=== PATIENT | female | born 1950 | race Caucasian/White ===

== ENCOUNTER 2024-09-23 10:21 | Inpatient (IN) | payer MEDICARE ==
[~2024-09-23] VITALS: Ht 160 cm; Wt 69.0 kg
--- NOTE | 2024-09-23 10:25 | ELECTROCARDIOGRAPH REPORT ---
[facility] Test Date: 2024-09-23 Test Time: 10:23:42 Pat Name: JENNIE RIVERA Department: EMERGENCY ROOM Room: [place] [address] Gender: F Qual Field Manager: PM : 1950 Requested By: AJ MENON Order Number: [id number] Reading MD: Dr. Orlin Blackwood Measurements Intervals [place] Rate: 62 P: 22 IA: 152 QRS: 44 QRSD: 94 T: 40 QT: 438 QTc: 445 Interpretive Statements Sinus rhythm Lateral infarct, recent Electronically Signed On 09-23-2024 19:42:[address] Orlin Blackwood Please click the below link to view image of tracing.
[2024-09-23 11:06] LABS: MEAN PLATELET VOLUME 8.5 FL (7.4-10.4); RED CELL DISTRIBUTION WIDTH 13.9 % (11.5-14.5)
--- NOTE | 2024-09-23 11:24 | Physician Documentation ---
History of Present Illness ~ Chief Complaint: Chest Pain Stated Complaint: CHEST PRESSURE Time Seen by MD: 11:04 Primary Medical Doctor: JOSÉ LUIS TAPIA; PILOT PLANT RESEARCH TECHNICIAN- CAMRON Mode of Arrival: EMS, Stretcher HPI 74-year-old female presenting with some pressure-like chest discomfort that started earlier today this morning when she was cooking breakfast. She describes it as feeling very bloated but up in her chest. She states that sometimes she will get this and will burp and it will go away. However this time after burping several times it did not and she became more concerned. She denies any pain but states that it is more like a pressure in the left side. Denies any nausea, vomiting, cough, shortness of breath, fever, chills or any other associated symptoms. Medication Reconciliation Allergies: Coded Allergies: No Known Allergies (Unverified , 09/23/24) Review of Systems All Other Systems at this time: Reviewed and Negative Physical Exam Vital Signs: Temperature: 98.2, Source: Oral, Heart Rate: 74, Respiratory Rate: 18, BP: 128/56, Pulse Oximetry: 95, Weight: 69.000 Oxygen Flow Rate: 0 Physical Exam I have reviewed the triage vitals. CONST: Well developed and well nourished. In no acute distress HENT: Head Atraumatic EYES: Pupils are equal, round and reactive to light. Normal conjunctiva NECK: Normal range of motion. Supple. CARDIO: Normal rate and regular rhythm. No murmurs, rubs, or gallops. S1, S2. PULM/CHEST: No respiratory distress. Lungs clear to auscultation. No wheeze ABD: Soft and nontender. Nondistended. Bowel sounds normal. No guarding. : Exam deferred MSK: No edema. No deformity. NEURO: Alert and oriented to person, place and time. Moving all extremities SKIN: Warm and dry. PSYCH: Normal mood and affect. Good eye contact. Progress Results/Orders Results/Orders Orders - AJ MENON MD Chest,Single View (09/23/24 10:22) Monitor (09/23/24 10:22) Saline Lock (09/23/24 10:22) Oxygen (09/23/24 10:22) Electrocardiogram (09/23/24 10:22) Electrocardiogram (09/23/24 ) Cbc/Diff (09/25/24 03:00) Cbc/Diff (09/26/24 03:00) Cbc/Diff (09/27/24 03:00) Cbc/Diff (09/28/24 03:00) Page Hospitalist (09/23/24 12:02) Fill Out Med Reconciliation (09/23/24 12:02) Completed Orders - AJ MENON MD Chest,Single View (09/23/24 10:22) Cbc/Diff (09/23/24 10:22) BMP (09/23/24 10:22) PBNP (09/23/24 10:22) Electrocardiogram (09/23/24 10:22) Hs Troponin I W Calculations (09/23/24 10:22) Hs Troponin I W Calculations (09/23/24 12:22) Hs Troponin I W Calculations (09/23/24 13:22) Electrocardiogram (09/23/24 ) Morphine 2mg/Ml Inj. (Morphine Inj.) (09/23/24 12:05) Ondansetron Inj. (Zofran 4mg/2ml Vial) (09/23/24 12:05) Pt Inr (09/23/24 12:01) PTT (09/23/24 12:01) Heparin 10,000 Unit/Ml 1ml (Heparin 10,0 (09/23/24 12:05) Heparin 25,000 Unit/250ml Bag (Heparin 2 (09/23/24 12:05) Heparin 10,000 Unit/Ml 1ml (Heparin 10,0 (09/23/24 12:05) Cbc/Diff (09/24/24 03:00) Heparin 10,000 Unit/Ml 1ml (Heparin 10,0 (09/23/24 12:05) Message To Nursing (09/23/24 12:15) Cardiac Ptt (09/23/24 18:25) MG (09/23/24 10:26) Vital Signs 09/23/24 09/23/24 09/23/24 09/23/24 10:23 10:32 12:20 12:22 Temp 98.2 98.2 Pulse 74 67 Resp 18 18 18 16 B/P (MAP) 128/56 145/60 (88) Pulse Ox 95 97 O2 Flow Rate 0 0 Laboratory Tests Test 09/23/24 10:26 09/23/24 12:05 White Blood Count 10.5 Red Blood Count 4.67 Hemoglobin 13.3 Hematocrit 39.9 Mean Corpuscular Volume 85.4 Mean Corpuscular Hemoglobin 28.5 Mean Corpuscular Hemoglobin Concent 33.4 Red Cell Distribution Width 13.9 Platelet Count 315 Mean Platelet Volume 8.5 Neutrophils (%) (Auto) 74.9 Lymphocytes (%) (Auto) 15.2 L Monocytes (%) (Auto) 4.7 Eosinophils (%) (Auto) 4.4 Basophils (%) (Auto) 0.8 Neutrophils # (Auto) 7.9 H Lymphocytes # (Auto) 1.6 Monocytes # (Auto) 0.5 Eosinophils # (Auto) 0.5 Basophils # (Auto) 0.1 CBC Comment Sodium Level 128 L Potassium Level 3.6 Chloride Level 107 Carbon Dioxide Level 26.8 Anion Gap -6 L Blood Urea Nitrogen 18 Creatinine 0.45 Estimated GFR/1.73 m2 > 90 BUN/Creatinine Ratio 40.0 H Glucose Level 129 H Calcium Level 8.4 L Magnesium Level 1.8 Troponin I High Sensitivity 398 *H 1696 *H Pro-B-Type Natriuretic Peptide 189 H Albumin 3.3 L Chemistry Comments Prothrombin Time 10.3 INR International Normalized Ratio 1.0 Activated Partial Thromboplast Time 26 Coagulation Comments Troponin I High Sens Percent Delta 326 Troponin I Hi Sens Absolute Change 1298 EKG/XRAY/CT/US/VASC/MRI EKG : Additional Comment EKG as interpreted by ED MD indicating normal sinus rhythm with a rate of 62 beats per minute, no ischemia, normal axis Chest X-Ray : Additional Comments CHEST RADIOGRAPH Indication: CP Technique: DI CHEST,SINGLE VIEW COMPARISON: None FINDINGS: The cardiac silhouette is enlarged. The lungs demonstrate bilateral patchy airspace opacities. Right hilar prominence. Aortic atherosclerotic disease. The pulmonary vasculature is prominent. There is no pleural effusion. There is no pneumothorax. IMPRESSION: Cardiomegaly with pulmonary vascular congestion and bilateral patchy airspace opacities. Right hilar prominence. Recommend CT chest with contrast to evaluate for mass/ lymphadenopathy versus vasculature congestion Medical Decision Making Additional Information This is a 74-year-old female presenting with left-sided chest pressure secondary to a NSTEMI. Patient had an elevated troponin of 389 initially. Repeat troponin was further elevated above 1600. Patient had already been given aspirin and nitroglycerin en route to hospital by EMS. We did start her on a heparin drip and also treated her with Plavix. Patient was also given IV morphine 2 mg for pain control. I did consult Cardiology Dr. Rodriguez who will consult and see the patient. Patient admitted to the inpatient hospitalist service. Departure Disposition: ADMITTED INPATIENT Admitted to Inpatient Unit: to hospitalist, to sessions clerk Admission Level of Care: PCU with Tele Impression: Primary Impression: NSTEMI (non-ST elevated myocardial infarction) Condition: Guarded Referrals: NO PRIMARY CARE PROVIDER (PCP) Critical Care Note Total Time (mins): 96 Critical Care Note The very real possibility of a deterioration of this patient's condition required the highest level of my preparedness for sudden, emergent intervention. I provided critical care services, which included medication orders, frequent reevaluations of the patient's condition and response to treatment, ordering and reviewing test results, and discussing the case with various consultants. Excludes time spent performing separately billable procedures. The critical care time associated with the care of the patient was. Signature Scribe Signature: 1 Attestation: 1 AJ MENON MD Sep 23, 2024 11:24
--- NOTE | 2024-09-23 11:29 | RADIOLOGY REPORT ---
CHEST RADIOGRAPH Indication: CP Technique: DI CHEST,SINGLE VIEW COMPARISON: None FINDINGS: The cardiac silhouette is enlarged. The lungs demonstrate bilateral patchy airspace opacities. Right hilar prominence. Aortic atherosclerotic disease. The pulmonary vasculature is prominent. There is n o pleural effusion. There is no pneumothorax. IMPRESSION: Cardiomegaly with pulmonary vascular congestion and bilateral patchy airspace opacities. Right hilar prominence. Recommend CT chest with contrast to evaluate for mass/ lymphadenopathy versu s vasculature congestion
[2024-09-23 11:31] LABS: CREATININE 0.45 MG/DL (0.40-0.90); PRO BRAIN NATRIURETIC PEPTIDE 189 PG/ML (0-125); TOTAL CARBON DIOXIDE 26.8 MMOL/L (24-32); eCRCL 93 ML/MIN; eGFR > 90 ML/MIN
--- NOTE | 2024-09-23 11:46 | ELECTROCARDIOGRAPH REPORT ---
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 Orlin Blackwood Measurements Intervals [place] Rate: 57 P: 29 MD: 155 QRS: 58 QRSD: 96 T: 50 QT: 443 QTc: 432 Interpretive Statements Sinus bradycardia Low voltage, precordial leads Baseline wander in lead(s) V3 Electronically Signed On 09-23-2024 19:42:[address] Orlin Blackwood Please click the below link to view image of tracing.
[2024-09-23] MEDS ORDERED: heparin 10,000 units/1 ML INJ IV ONE ×2 (12:05)
[2024-09-23] MEDS ORDERED: heparin 10,000 units/1 ML INJ IV PRN (12:05)
[2024-09-23] MEDS: ondansetron/PF 4mg/2ml inj IV ONE (12:20)
[2024-09-23] MEDS: heparin 10,000 units/1 ML INJ IV ONE (12:22)
[2024-09-23] MEDS: heparin 25,000 UNIT/250ml bag 250 ML IV PRN (12:25)
[2024-09-23] MEDS: MESSAGE TO NURSING IV ONE (12:25)
[2024-09-23 12:36] LABS: APTT 26 SECONDS (22-32); INR 1.0 INR
[2024-09-23] MEDS: normal saline 1000ml 1,000 ML IV SCH (14:26)
[2024-09-23] MEDS ORDERED: midazolam 1 mg/ML 2ml injection ONE (14:32)
[2024-09-23] MEDS ORDERED: LIDOcaine 1% (10mg/ml) 2ml vial ONE (14:32)
[2024-09-23] MEDS ORDERED: verapamil 2.5 mg/ml inj IV ONE (14:32)
[2024-09-23] MEDS ORDERED: iohexol 350 MG/ML 50ML vial IV ONE (14:33)
[2024-09-23] MEDS ORDERED: heparin 1,000unit/ml 10ml vial 10 ML ONE (14:33)
[2024-09-23] MEDS ORDERED: fentaNYL/PF 50MCG/1 ML 2ML syringe ONE (14:33)
[2024-09-23] MEDS ORDERED: nitroGLYCERIN 500mcg/5mL D5W 5 ML IV ONE (14:41)
[2024-09-23] MEDS ORDERED: potassium Cl 20 mEq SR tablet PO PRN ×2 (14:55)
[2024-09-23] MEDS ORDERED: ondansetron/PF 4mg/2ml inj IV PRN (14:55)
[2024-09-23] MEDS ORDERED: magnesium sulf-water 4G/100mL 100 ML IV PRN (14:55)
[2024-09-23] MEDS ORDERED: magnesium Cl slow-release 64mg tablet PO PRN (14:55)
[2024-09-23] MEDS ORDERED: magnesium hydroxide 30ml (MOM) UD suspension PO PRN (14:55)
[2024-09-23] MEDS ORDERED: potassium Cl 40MEQ/1/2NS 520ml 520 ML IV PRN (14:55)
[2024-09-23] MEDS ORDERED: mag hydrox/Alum hydrox/simeth 30ml oral suspension PO PRN (14:55)
[2024-09-23] MEDS ORDERED: HYDROcodone/acetaminophen 10/325mg tab PO PRN (14:55)
[2024-09-23] MEDS ORDERED: magnesium sulf-water 2g/50mL 50 ML IV PRN (14:55)
[2024-09-23] MEDS: PERFLUTREN PROTEIN-A MICROSPHR (Optison) 0.22 MG/ML 3ML VIAL IV ONE (14:55)
--- NOTE | 2024-09-23 16:05 | HISTORY AND PHYSICAL-Residence ---
History & Physical Providers to CC Resident Creating Document: DANNA EGAN, RES ~ History of Present Illness Primary Medical Doctor: JOSÉ LUIS TAPIA; CONSOLIDATION ACCOUNTANT- CAMRON Reason for Admit\Complaint: NSTEMI History of Present Illness The patient is a 74-year-old female with past medical history of COPD, pemphigus, ADHD, hyperlipidemia, presented to the ED with complaints of chest pain. Her chest pain began at around 8:30 a.m. this morning while the patient was preparing her breakfast, was sudden in onset, non-radiating, central and back in location, associated with diaphoresis, nausea. She described it as heaviness in her chest, rated it 8/10. She took her 's old nitroglycerin but it did not relieve her chest pain. Not associated with shortness of breath, syncope or palpitations. It only relieved after she got medications in the hospital. She reported that she is always in a stressful environment because of her being disabled but current stress is nothing out of usual. Patient denies fevers, cough, shortness of breath, palpitations, vomiting, abdominal pain, diarrhea, constipation, burning micturition, hematuria. No history of similar complaints in the past. Patient reported having some dizziness since the last few days. Allergies: Coded Allergies: No Known Allergies (Unverified , 09/23/24) Past Medical History Past Medical History ADHD Pemphigus COPD Hyperlipidemia Past Surgical History Surgical History Comment Appendectomy LEEP for positive PAP smear, 15 years ago Family history: Father - [place] in his 80s Past Social History Social History Comment Patient lives in her house with her disabled . Independent with her ADLs. Ambulates independently without assistance. PCP - Santy Chau, also sees psychiatrist through [facility] Wind Development Director - Dr. Rodriguez Smoking - quit 22 years ago, smoked one pack of cigarettes per day for 30 years Alcohol - quit several years ago, not an active drinker Smokes marijuana, denies other illicit drug abuse. ROS All Other Systems: Reviewed and Negative ROS Constitutional: No fever, dizziness, weakness. no change in appetite/weight HEENT: No blurring of the vision, No sore throat, epistaxis, tinnitus Cardiovascular: Reports chest pain/discomfort, no palpitations, syncope. No pedal edema Respiratory: No sob, cough, hemoptysis Gastrointestinal: No abdominal pain, vomiting. No diarrhea, constipation, melena. Reports nausea Genitourinary: No frquency, urgency, incontinence, nocturia. No dysuria, hematuria Musculoskeletal: No arthralgia, myalgia Endocrine: No fatigue, polydipsia, polyuria. No heat or cold intolerance Neurologic: No headache, vertigo. No weakness, numbness or tingling of extremities Psychiatric: No hallucinations/delusions, no anhedonia, no suicidal ideation Hematologic: No bleeding or bruises Exam Vitals: Vital Signs Date Time Temp Pulse Resp B/P (MAP) Pulse Ox O2 Delivery O2 Flow Rate FiO2 09/23/24 14:47 98.2 78 18 148/94 (112) 96 0 General: Elderly female, alert and oriented x4, not in acute distress Head: Normocephalic with an atraumatic Eyes: Pupils- 3mm, reacting to light, conjunctiva - anicteric Nose and throat: No polyps, septum- normal, no mucosal ulcers Neck: Supple, no lymphadenopathy, no carotid bruit Respiratory: No use of accessory muscles of respiration, basilar crackles heard on the right side, No wheeze, rhochi or creps Cardiac: S1-S2 heard, rhythm regular, no gallop/murmur Abdomen: non distended, no tenderness, no organomegaly, bowel sounds - heard Extremities: no clubbing, no pedal edema, no deformities, peripheral pulses - 2+ Skin: warm and dry, no rash, no purpura Neuro: No focal deficit, gross cranial nerve exam - normal Diagnostic Data Last Recorded Lab Results: 09/23/24 1026 09/23/24 1026 Diagnostic Data: Laboratory Tests Test 09/23/24 12:05 Prothrombin Time 10.3 SECONDS (9.0-12.0) INR International Normalized Ratio 1.0 INR Activated Partial Thromboplast Time 26 SECONDS (22-32) Coagulation Comments Advance Care Planning Advanced Care plannin - 30 Minutes (DNR/DNI) Additional Plan A 74-year-old female with past medical history of COPD, ADHD, pemphigus, hyperlipidemia, presented to the ED with complaints of chest pain. She is being admitted into the hospital for further evaluation and management. Plan: NSTEMI HEART score 7 Current chest pain 04/29. EKG - no ST or T-wave changes. Elevated and up trending troponins - 398, 1696, 3582. Patient received 324 mg of oral aspirin and three doses of sublingual nitro by EMS. She also received 300 mg of Plavix in the ER. Wind Development Director, Dr. Rodriguez consulted by ER. Patient is scheduled for cardiac angiogram today. Patient currently receiving normal saline at 75 mL/hour. NPO. Continue management as per Dr. Rodriguez. Follow up with lipid panel. Continue atorvastatin 80 mg daily till then. HB A1c 5.6. Hyponatremia under evaluation Sodium 128. The patient is currently on normal saline at 75 mL/hour. Follow up with serum osmolality, urine osmolality, urine sodium and creatinine. Continue to monitor BMP. COPD, not in exacerbation Patient takes Symbicort and albuterol inhalers at home. Continue DuoNebs while the patient is in the hospital. Hyperlipidemia Patient takes Zetia at home. Continue atorvastatin 80 mg. Follow up with the LDL. ADHD Continue atomoxetine 40 mg daily. Pemphigus Continue doxycycline 100 mg twice daily. Depression Continue venlafaxine 150 mg once daily. Chronic back pain Continue gabapentin. Currently ordered 100 mg thrice daily. Waiting for final home medication list to be received from Santy Chau. Code Status: DNR/DNI DVT Prophylaxis: Heparin drip Analgesia/Sedation: Morphine, [place] Lines/Tubes: PIV Nutrition: NPO for angiogram, heart healthy diet thereafter PT: Ordered Prognosis: Guarded Disposition: We will admit the patient into medical [facility]. Patient is scheduled for angiogram by Dr. Rodriguez today. Follow recommendations of Dr. Rodriguez. Danna Egan MD Internal Medicine Resident PGY-2 Date of Service: Sep 23, 2024 Billing Provider: CARTER MARQUES MD,DANNA PRYOR, RES Sep 23, 2024 16:05
[2024-09-23 16:39] LABS: ISTAT HGB ART 12.6 g/dl (12.0-16.0); ISTAT Hct ART 37 %PCV (35-45); ISTAT O2 SATURATION ARTERIAL 94 % (95-98); ISTAT SOURCE ART
--- NOTE | 2024-09-23 17:19 | ELECTROCARDIOGRAPH REPORT ---
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 Singh Acuña Measurements Intervals [place] Rate: 72 P: 10 VA: 169 QRS: 48 QRSD: 86 T: 42 QT: 424 QTc: 465 Interpretive Statements Sinus rhythm Anterior infarct, acute (LAD) Lateral leads are also involved Electronically Signed On 09-24-2024 7:04:[address] Singh Acuña Please click the below link to view image of tracing.
[2024-09-23 17:30] VITALS: BP 132/50; PULSE 69; RESP 12; TEMP 98.2; O2SAT 97
[2024-09-23 17:38] VITALS: PULSE 63; RESP 16; O2SAT 96
[2024-09-23 18:00] VITALS: BP 142/62; PULSE 74; RESP 13; TEMP 97; O2SAT 96
[2024-09-23 20:00] VITALS: RESP 13; O2SAT 96
[2024-09-23] MEDS: docusate sod 100mg capsule PO SCH (20:00)
[2024-09-23] MEDS: K and/or MAG REPLACEMENT MC SCH (20:00)
[2024-09-23] MEDS: DOXYCYCLINE 100MG CAPSULE PO SCH (20:28)
[2024-09-23 21:07] VITALS: PULSE 82; RESP 16; O2SAT 96
[2024-09-23] MEDS: ipratropium/albuterol 3ml nebule NEB SCH (21:07)
[2024-09-23 22:00] VITALS: BP 135/75; PULSE 75; RESP 11; TEMP 97.9; O2SAT 97
[2024-09-24 02:00] VITALS: BP 126/56; PULSE 79; RESP 22; TEMP 97.3; O2SAT 96
[2024-09-24 06:00] VITALS: BP 113/48; PULSE 66; RESP 16; TEMP 98.9; O2SAT 97
[2024-09-24 06:37] LABS: MEAN PLATELET VOLUME 8.4 FL (7.4-10.4); RED CELL DISTRIBUTION WIDTH 13.9 % (11.5-14.5)
--- NOTE | 2024-09-24 06:45 | ELECTROCARDIOGRAPH REPORT ---
[facility] Test Date: 2024-09-24 Test Time: 06:45:01 Pat Name: JENNIE RIVERA Department: [facility] 3S Patient ID: [id number] Room: [place] [address] A Gender: F Smoking Pipe Maker: SYLVAIN : 1950 Requested By: NATTY LYON Order Number: [id number] Reading MD: Dr. Singh Acuña Measurements Intervals [place] Rate: 76 P: 21 UT: 157 QRS: 51 QRSD: 86 T: 89 QT: 433 QTc: 487 Interpretive Statements Sinus rhythm Borderline ST elevation, Anterolateral leads Borderline prolonged QT interval Electronically Signed On 09-24-2024 7:07:[address] Singh Acuña Please click the below link to view image of tracing.
[2024-09-24 06:47] LABS: INR 1.0 INR
[2024-09-24] MEDS: aspirin 81mg, enteric-coated 1 TAB TABLET.DR PO SCH (07:56)
[2024-09-24] MEDS: venlafaxine XR 75mg capsule (Q24H) PO SCH (07:57)
[2024-09-24 08:00] VITALS: RESP 16; O2SAT 97
--- NOTE | 2024-09-24 08:11 | CONSULTATION ---
DATE OF CONSULTATION: 09/23/2024 DICTATING PHYSICIAN: PATT Rodriguez MD CARDIOLOGY CONSULTATION REQUESTING PHYSICIAN: ER Physician. REASON FOR EVALUATION: A 74-year-old female with hypertension and hyperlipidemia, with a non-ST elevation NM with chest pain and shortness of breath. HISTORY OF PRESENT ILLNESS: The patient is a 74-year-old postmenopausal female with hyperlipidemia and aortic regurgitation. She was last seen in my office back on 06/11/2015. Her myocardial perfusion in 12/2014, was negative for ischemia, and she had an echocardiogram was in 01/2015, ejection fraction of 75%, moderate aortic regurgitation, mild MR, TR, and SD. She was managed medically. Subsequently, she has been followed up by her primary physician, Ivy Chau, and this morning around 9 a.m. when she was in her kitchen when she was cooking her breakfast, she had severe substernal chest discomfort, 9/10, radiating to the back, shortness of breath, perspiration and dizziness, and she took her 's nitroglycerin, did not work, called 911, was brought to the emergency room, and they gave her pain medication and sublingual nitroglycerin, and the pain has come down to 2/10. Initially, her troponin was 398 and went up to 1696. Her EKG showed normal sinus rhythm with a Q-wave lead 1 and AVL, nonspecific ST-T in lead 1 and AVL. Generally, the patient ambulates around house, reports dyspnea while going up with NYHA dyspnea class II to III. No history of stent, palpitations, or syncope with no history of coronary or rheumatic heart disease. PAST MEDICAL HISTORY: As mentioned above. * Aortic regurgitation. * Hyperlipidemia. * COPD. The patient smoked from age 19 to 57. 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 Goes to [facility]. She is on doxycycline 100 mg p.o. b.i.d. PAST SURGICAL HISTORY: Cancer of cervix with LEEP. Cyst removed from the breast in 1974. Tubal ligation 1976. LEEP 2010. Bilateral cataract removed 2014. SOCIAL HISTORY: Tobacco, she smoked from 19 to 57. No history of alcohol intake. No history of substance abuse. The patient is and lives with her . 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 FAMILY HISTORY: Father with ADD and myocardial infarction. Mother at age of 90. REVIEW OF SYSTEMS: HEENT: Wears reading glasses, mild hearing impairment. RESPIRATORY: Exertional shortness of breath. MUSCULOSKELETAL: DJD. CENTRAL NERVOUS SYSTEM: No stroke. PSYCHIATRIC: No anxiety or depression. SKIN: None. ENDOCRINE: None. MEDICATIONS: At home doxycycline, Zetia 10 mg p.o. daily, multivitamin, Neurontin, cranberry. PHYSICAL EXAMINATION: GENERAL: The patient is conscious, alert and oriented, comfortable to touch. HEENT: Pupils equal and reactive. Oral mucosa moist. Head atraumatic and normocephalic. NECK: Supple. No jugular venous distention. Carotids equally well felt. No JVD. VITAL SIGNS: Pulse 72, blood pressure 130/70. CARDIAC: Regular rate and rhythm. S1, S2 is normal. No S3, S4 or murmurs. LUNGS: Clear to auscultation. ABDOMEN: Soft. Bowel sounds present. EXTREMITIES: No edema, cyanosis, or clubbing. CENTRAL NERVOUS SYSTEM: No lateralizing signs. LABORATORY DATA: Hematocrit 39.9, platelet count 315. Sodium 128, potassium 3.6, chloride 107, carbon dioxide 26.8, BUN 18, creatinine 0.45, proBNP 189. Troponin was 398, increased to 1696. IMPRESSION AND PLAN: * A 74-year-old postmenopausal female with hyperlipidemia, presenting with non-ST elevation myocardial infarction, has abnormal EKG, ongoing chest pain, and elevated troponin continues to increase. Options of further evaluation of coronary angiography. Risks, benefits and alternative options discussed with the patient. The patient understands and agrees and would like to proceed with the same. * Hyperlipidemia., on Zetia. Other comorbidities include COPD. Mucous membrane pemphigoid. PATT Rodriguez MD TID: [id number] RECEIPT: [id number] [facility]
[2024-09-24 08:14] LABS: CHOL/HDL RATIO 3.3 (0.00-4.99); CREATININE 0.63 MG/DL (0.40-0.90); LDL CHOLESTEROL 128 MG/DL (50-100); PRO BRAIN NATRIURETIC PEPTIDE 3788 PG/ML (0-125); TOTAL CARBON DIOXIDE 31.0 MMOL/L (24-32); eCRCL 67 ML/MIN; eGFR > 90 ML/MIN
[2024-09-24 08:23] VITALS: PULSE 76; RESP 16; O2SAT 98
--- NOTE | 2024-09-24 08:28 | CARDIOLOGY REPORT ---
DATE OF SERVICE: 09/23/2024 DICTATING PHYSICIAN: PATT Rodriguez MD CARDIAC CATHETERIZATION PRIMARY PHYSICIAN: Ivy Pate. DRY CHARGE PROCESS ATTENDANT: Dr. PATT Rodriguez. INDICATION: The patient is a 74-year-old postmenopausal female with history of hyperlipidemia, pemphigus, came to the emergency room with severe substernal chest discomfort, 9/10, radiating to the back, associated with chest pain, shortness of breath, and perspiration. Her initial troponin was 398; it increased to 1696 and then to 3582, and EKG showed nonspecific changes. After discussing the risks, benefits, and alternative options, the patient prefers to proceed with definitive evaluation with coronary angiography. Risks, benefits, and alternative options were discussed. Informed consent was obtained. PROCEDURE TECHNIQUE: The patient underwent left heart catheterization from right radial approach, 6-Indonesian right radial sheath. Post procedure, access site hemostasis secured with right radial band. The patient tolerated the procedure well. The patient underwent right heart catheterization from right antecubital approach with a 6-Indonesian sheath. Post procedure, access site hemostasis secured with manual compression. The patient tolerated the procedure well. COMPLICATIONS: None. PROCEDURES DONE: * Ultrasound-guided right radial artery visualization and access. * Right heart catheterization. * Left heart catheterization. * Right subclavian angiography. * Coronary cineangiography. * Left ventriculography. * Conscious sedation time of 30 minutes. FINDINGSHEMODYNAMICS: Aortic systolic 154/53, mean 98 mmHg. LVEDP was 17 mmHg. There is no significant gradient across the aortic valve. Right atrial mean is 7 mmHg, RV 35/10 mmHg. PA 35/11 mmHg. Pulmonary capillary 16 mmHg. Aortic oxygen saturation 94%. Pulmonary artery oxygen saturation 57%. Cardiac output with thermodilution method is 3.57 L per minute. Cardiac index with 2.07 L/min per m2. LVG revealed moderate LV systolic dysfunction, presented with LV ejection fraction of about 45%. There is severe hypokinesia of the distal anteroapical, distal inferior wall consistent with Takotsubo/stress-induced cardiomyopathy. CORONARY CINEANGIOGRAPHY: Left main coronary artery is a large-caliber vessel arising from left aortic sinus and has mild luminal irregularities. LAD is a medium-caliber vessel arising at the bifurcation of left main coronary artery, courses through the anterior interventricular groove and ends by wrapping around the apex. LAD in the mid portion is intramyocardial and has about 30% narrowing. Diagonal 1 is a 2 mm caliber vessel with mild luminal irregularities. Diagonal 2 is a 2.25 mm vessel with mild luminal irregularities. Circumflex artery is a medium-caliber vessel arising at the bifurcation of left main coronary, courses through the left AV groove with mild luminal irregularities. OM1 is a 2.25 mm caliber vessel with minimal luminal irregularities. Diagonal 2 is very small. Diagonal 3 is a 2.3 mm caliber vessel with mild luminal irregularities. Right coronary artery is a large-caliber dominant vessel arising from the right aortic stenosis sinus, courses through the right AV branch of the posterior crux by dividing into PDA and posterolateral branches. Bifurcation of the RCA happens soon after the mid portion. RCA and its branches have mild luminal irregularities. IMPRESSION: A 74-year-old female with stress-induced/Takotsubo cardiomyopathy with an ejection fraction of about 40% to 45%. Distal apical and distal inferior and severe hypokinesia. LVEDP of 17 mmHg. No gradient across the aortic valve. Pulmonary capillary wedge pressure of 16 mmHg. PAP of 35/11 mmHg. Left main normal. LAD mid 30% narrowing. Circumflex marginal with minimal disease. Dominant RCA with minimal disease. RECOMMENDATIONS: Recommend continued aggressive coronary risk factor modification, namely low fat, low cholesterol diet, maintaining ideal body weight, keeping LDL less than 70 mg%. Recommend treating her cardiomyopathy with GDMT, namely Coreg 3.25 mg p.o. b.i.d., losartan 25 mg p.o. q. day, and spironolactone 25 mg p.o. q. day. If EF does not improve in future, additional Farxiga can be considered. Risks, benefits, alternative options discussed with the patient. PATT Rodriguez MD TID: [id number] RECEIPT: [id number] RENAE/DIONNE cc: Ivy Boudreaux MTDCarla
[2024-09-24 08:29] VITALS: PULSE 71
[2024-09-24 09:11] LABS: ISTAT HGB MIX 12.2 g/dl (12.0-16.0); ISTAT Hct MIX 36 %PCV (35-45); ISTAT O2 SATURATION MIX VENOUS 57 % (60-80); ISTAT SOURCE VEN
[2024-09-24 10:12] LABS: LEUKOCYTE ESTERASE ,URINE NEGATIVE (Neg); NITRITES, URINE NEGATIVE (Neg); OCCULT BLOOD,URINE NEGATIVE (Neg)
[2024-09-24 10:18] LABS: UA COLLECTION TYPE NON-SPECIFIED
[2024-09-24 11:00] VITALS: BP 129/51; PULSE 86; RESP 20; TEMP 98.8; O2SAT 92
[2024-09-24] MEDS ORDERED: SPIR25TA PO (13:21)
[2024-09-24] MEDS ORDERED: COR3.125T PO (13:21)
[2024-09-24] MEDS ORDERED: ASPI-1071 PO (13:21)
[2024-09-24] MEDS ORDERED: LOSA25TA41 PO (13:21)
[2024-09-24] MEDS ORDERED: ROSU20TA98 PO (13:38)
--- NOTE | 2024-09-24 17:14 | PROGRESS NOTE ---
Progress Note Cardiology Providers to CC ~ Subjective Subjective Patient seen and examined before discharge. No chest pain or shortness of breath. Patient eager to go home. Objective Result Diagram: 09/24/24 0552 09/24/24 0552 Objective General: Normal body habitus, no acute distress, HEENT: Sclerae clear, PERRL, gums without lesions or bleeding, oropharynx clear without erythema or exudate. Neck: Supple without enlargement of the thyroid, or lymphadenopathy, Chest: Normal size and shape, no tenderness, nonlabored breathing, Breath sounds clear to auscultation. Heart: Regular in rate and rhythm, S1 and S2 normal, no S3-S4 or murmurs. Abdomen: Soft, nontender, no organomegaly, bowel sounds present. Extremities: No edema cyanosis or clubbing. Coagulation Studies Laboratory Tests Test 09/23/24 12:05 09/23/24 15:49 09/23/24 17:13 09/24/24 05:52 Activated Partial Thromboplast Time 26 SECONDS (22-32) Activated Clotting Time 153 SEC (101-148) H APTT (Heparin Protocol) 74 SECONDS (45-60) H Prothrombin Time 10.3 SECONDS (9.0-12.0) INR International Normalized Ratio 1.0 INR Coagulation Comments Problem\Assessment\Plan Additional Plan * 1. A 74-year-old postmenopausal female with hyperlipidemia, presenting with non-ST elevation myocardial infarction, has abnormal EKG, ongoing chest pain, and elevated troponin continues to increase. Coronary angiography on 09/23/2024 revealed takotsubo cardiomyopathy with mild coronary artery disease. Recommend aspirin Carvedilol losartan and spironolactone. Patient educated about her disease process. 2. Hyperlipidemia., on Zetia. Other comorbidities include COPD. Recommend follow up with PMD and with me in next 1-2 months. NATTY LYON MD Sep 24, 2024 17:14
--- NOTE | 2024-09-24 17:16 | DISCHARGE SUMMARY-Residence ---
Discharge Summary Providers to CC Resident Creating Document: ALESSIOISRA CASTILLO ROYA, RES ~ Discharge Summary Admission Diagnosis: NSTEMI Hospital Course DATE OF ADMISSION: DATE OF DISCHARGE: Condition on DC: Stable Discharge Summary: Laboratory Tests Test 09/23/24 10:26 09/23/24 12:05 09/23/24 13:54 09/23/24 15:30 White Blood Count 10.5 X10'3 Red Blood Count 4.67 X10'6 Hemoglobin 13.3 g/dl Hematocrit 39.9 % Mean Corpuscular Volume 85.4 FL Mean Corpuscular Hemoglobin 28.5 PG Mean Corpuscular Hemoglobin Concent 33.4 g/dL Red Cell Distribution Width 13.9 % Platelet Count 315 X10'3 Mean Platelet Volume 8.5 FL Neutrophils (%) (Auto) 74.9 % Lymphocytes (%) (Auto) 15.2 % Monocytes (%) (Auto) 4.7 % Eosinophils (%) (Auto) 4.4 % Basophils (%) (Auto) 0.8 % Neutrophils # (Auto) 7.9 X10'3 Lymphocytes # (Auto) 1.6 X10'3 Monocytes # (Auto) 0.5 X10'3 Eosinophils # (Auto) 0.5 X10'3 Basophils # (Auto) 0.1 X10'3 CBC Comment Sodium Level 128 MMOL/L Potassium Level 3.6 MMOL/L Chloride Level 107 MMOL/L Carbon Dioxide Level 26.8 MMOL/L Anion Gap -6 Blood Urea Nitrogen 18 MG/DL Creatinine 0.45 MG/DL Estimated GFR/1.73 m2 > 90 ML/MIN BUN/Creatinine Ratio 40.0 Glucose Level 129 MG/DL Calcium Level 8.4 MG/DL Magnesium Level 1.8 MG/DL Troponin I High Sensitivity 398 ng/L 1696 ng/L 3582 ng/L Pro-B-Type Natriuretic Peptide 189 PG/ML Albumin 3.3 G/DL Chemistry Comments Prothrombin Time 10.3 SECONDS INR International Normalized Ratio 1.0 INR Activated Partial Thromboplast Time 26 SECONDS Coagulation Comments Troponin I High Sens Percent Delta 326 % 111 % Troponin I Hi Sens Absolute Change 1298 ng/L 1886 ng/L Osmolality 292 MOSM/K Hemoglobin A1c 5.6 % Test 09/23/24 15:49 09/23/24 15:53 09/23/24 17:13 09/24/24 05:52 Activated Clotting Time 153 SEC Bedside Blood Gas Source Levy Bedside Arterial Blood O2 Sat 94 % Bedside Mixed Venous O2 Saturation 57 % Bedside Hemoglobin (Blood Gas) 12.2 g/dl Bedside Hematocrit (Blood Gas) 36 %PCV APTT (Heparin Protocol) 74 SECONDS Coagulation Comments White Blood Count 9.3 X10'3 Red Blood Count 4.22 X10'6 Hemoglobin 12.4 g/dl Hematocrit 36.0 % Mean Corpuscular Volume 85.4 FL Mean Corpuscular Hemoglobin 29.3 PG Mean Corpuscular Hemoglobin Concent 34.3 g/dL Red Cell Distribution Width 13.9 % Platelet Count 285 X10'3 Mean Platelet Volume 8.4 FL Neutrophils (%) (Auto) 79.8 % Lymphocytes (%) (Auto) 13.7 % Monocytes (%) (Auto) 5.3 % Eosinophils (%) (Auto) 0.6 % Basophils (%) (Auto) 0.6 % Neutrophils # (Auto) 7.5 X10'3 Lymphocytes # (Auto) 1.3 X10'3 Monocytes # (Auto) 0.5 X10'3 Eosinophils # (Auto) 0.1 X10'3 Basophils # (Auto) 0.1 X10'3 CBC Comment Prothrombin Time 10.3 SECONDS INR International Normalized Ratio 1.0 INR Sodium Level 140 MMOL/L Potassium Level 4.2 MMOL/L Chloride Level 105 MMOL/L Carbon Dioxide Level 31.0 MMOL/L Anion Gap 4 Blood Urea Nitrogen 13 MG/DL Creatinine 0.63 MG/DL Estimated GFR/1.73 m2 > 90 ML/MIN BUN/Creatinine Ratio 20.6 Glucose Level 126 MG/DL Calcium Level 8.6 MG/DL Magnesium Level 1.9 MG/DL Total Bilirubin 0.4 MG/DL Aspartate Amino Transf (AST/SGOT) 27 U/L Alanine Aminotransferase (ALT/SGPT) 27 U/L Alkaline Phosphatase 67 IU/L Pro-B-Type Natriuretic Peptide 3788 PG/ML Total Protein 6.4 G/DL Albumin 3.2 G/DL Globulin 3.2 G/DL Albumin/Globulin Ratio 1.0 Triglycerides Level 57 MG/DL Cholesterol Level 218 MG/DL LDL Cholesterol 128 MG/DL HDL Cholesterol 67 MG/DL Cholesterol/HDL Ratio 3.3 Chemistry Comments Test 09/24/24 10:04 Urine Specimen Description Non-specified Urine Color Yellow Urine Clarity Clear Urine pH 5.5 Urine Specific [place] 1.025 Urine Protein Negative mg/dl Urine Glucose (UA) Negative mg/dl Urine Ketones >=80 mg/dl Urine Occult Blood Negative Urine Nitrite Negative Urine Bilirubin Negative Urine Urobilinogen 0.2 E.U/dL Urine Leukocyte Esterase Negative Urine Culture Indicated Not ind Volume Urine Centrifuged 10 ml Urine Comment Date of Service: Sep 24, 2024 Billing Provider: CARTER MARQUES MD, SOWMYA MANJARI, RES Sep 24, 2024 17:16
== END 2024-09-24 14:30 | disposition home or self-care (01) | DRG 281 ==
LOC: ER 10:21 → ED HOLD 12:50 → PCU 3S 16:42
PROVIDERS: ADMIT Family Medicine; ATTEND Family Medicine
PROC: 4A023N8 Measurement of Cardiac Sampling and Pressure, Bilateral, Percutaneous Approach (ICD-10-PCS; principal; 2024-09-23)
PROC: B2111ZZ Fluoroscopy of Multiple Coronary Arteries using Low Osmolar Contrast (ICD-10-PCS; 2024-09-23)
PROC: B2151ZZ Fluoroscopy of Left Heart using Low Osmolar Contrast (ICD-10-PCS; 2024-09-23)
PROC: B3111ZZ Fluoroscopy of Right Brachiocephalic-Subclavian Artery using Low Osmolar Contrast (ICD-10-PCS; 2024-09-23)
DX: I21.4 Non-ST elevation (NSTEMI) myocardial infarction (principal); L12.8 Other pemphigoid; J44.9 Chronic obstructive pulmonary disease, unspecified; F90.9 Attention-deficit hyperactivity disorder, unspecified type; F32.A Depression, unspecified; G89.29 Other chronic pain; M54.89 Other dorsalgia; Z66 Do not resuscitate; I35.1 Nonrheumatic aortic (valve) insufficiency; E78.5 Hyperlipidemia, unspecified; Z87.891 Personal history of nicotine dependence; Z85.41 Personal history of malignant neoplasm of cervix uteri; Z90.49 Acquired absence of other specified parts of digestive tract
CPT/HCPCS: 36415; 71045; 76937; 80048; 80053; 80061; 81003; 82803; 83036; 83735; 83880; 83930; 84484; 85014; 85025; 85347; 85610; 85730; 87081; 93005; 93460; 94640; 94760; 96365; 96375; 99152; 99153; 99291; 99292; A6258; C1725; C1894; G0378; J1200; J1644; J2003; J2250; J2270; J2405; J3010; J3490; J7030; Q9967